=== PATIENT | female | born 1960 | race Caucasian/White ===

== ENCOUNTER 2016-09-24 09:05 | Inpatient (IN) | payer OTHER ==
[~2016-09-24] VITALS: Ht 2834.6 cm; Wt 93.0 kg
[~2016-09-24 09:05] MED LIST: ADVAIR 250/501 DISK IH; ALBUTEROL2.5 MG/3 M IH; CIPROFLOXACIN500 M1 PO; CLONAZEPAM0.5 MG PO; COMBIVENT RESPIM4 GM IH; DUONEB 2.5-0.5 M3 ML AEROSOL; ELAVIL10 MG PO; ESCITALOPRAM OX20 MG PO; FLEXERIL10 MG PO; LEVAQUIN750 MG PO; LEVOTHYROXINE75 MCG PO; LEXAPRO PO; LIDODERM 5% P1 PATCH TD; LISINOPRIL10 MG PO; LORTAB 5-325 M1 EACH PO; MOTRIN600 MG PO; NAPROSYN-EC500 MG PO; NORCO 7.5/321 TABLET PO; OXYCODONE-APAP1 EACH PO; PERCOCET 5/31 TABLET PO; PREDNISONE20 MG PO; PRILOSEC20 MG PO; SYNTHROID PO; VALIUM5 MG PO; VENTOLIN HFA18 GM IH; VICOPROFEN1 TABLET PO; Valium PO; WELLBUTRIN XL300 MG PO; ZITHROMAX Z-PA250 MG PO; ZOFRAN ODT4 MG PO
[2016-09-24 09:59] LABS: EOSINOPHIL (%) 0.6 % (0-5); EOSINOPHIL COUNT 0.1 K/uL (0-0.3); HEMATOCRIT 36.2 % (36.0-46.0); IMMATURE GRANULOCYTE (%) 0.2 % (0.0-0.7); IMMATURE GRANULOCYTE COUNT 0.2 K/uL; LYMPHOCYTE COUNT 1.6 K/uL (1.0-2.8); MCH 30.5 PG (29.0-34.0); MCHC 33.4 G/DL (30.0-36.0); MCV 91.2 FL (83-99); MEAN PLAT.VOLUME 9.9 uM^3 (9.5-12.4); MONOCYTE (%) 10.2 % (3-12); MONOCYTE COUNT 0.8 K/uL (0-0.8); NEUTROPHIL (%) 69.8 % (45-76); NEUTROPHIL COUNT 5.7 K/uL (1.8-6.4); PLATELET COUNT 130 K/uL (156-360); RBC DIS.WIDTH-CV 13.5 % (11.8-14.6); RBC DIS.WIDTH-SD 43.9 % (39-53); RED BLOOD COUNT 3.97 M/uL (3.80-5.20); WHITE BLOOD COUNT 8.1 K/uL (4.1-10.2)
[2016-09-24 10:04] LABS: CHLORIDE 105 mEq/L (99-109); POTASSIUM 4.5 mEq/L (3.7-5.4); SODIUM 139 mEq/L (136-147)
[2016-09-24 10:06] LABS: D-DIMER ELISA 0.29 mg/L FEU (< 0.57); GLUCOSE 130 mg/dL (70-99); INTER. NORMALIZED RATIO 1.1; PROTHROMBIN TIME 10.8 (9.2-11.2); PTT 28.3 (25-32)
[2016-09-24 10:07] LABS: ANION GAP 10 MEQ/L (2-14)
[2016-09-24 10:10] LABS: GFR ESTIMATE (CALCULATED) > 59 mL/min/
[2016-09-24 10:11] LABS: UREA NITROGEN (BUN) 11 mg/dL (9-23)
[2016-09-24 10:13] LABS: TROP-I INTERPRETATION NEGATIVE; TROPONIN-I 0.02 ng/mL (0.0-0.30)
[2016-09-24] MEDS ORDERED: ALBUTEROL2.5 MG/3 M IH (11:35)
[2016-09-24] MEDS ORDERED: AMITRIPTYLINE H10 MG PO (11:36)
[2016-09-24] MEDS ORDERED: OMEPRAZOLE20 MG PO (11:36)
[2016-09-24] MEDS ORDERED: ESCITALOPRAM OX20 MG PO (11:37)
[2016-09-24] MEDS ORDERED: BUPROPION XL300 MG PO (11:37)
[2016-09-24] MEDS ORDERED: LEVOTHYROXINE75 MCG PO (11:37)
[2016-09-24] MEDS ORDERED: NICOTINE PATCH1 EAC2 TD (11:38)
[2016-09-24 13:25] LABS: TROP-I INTERPRETATION NEGATIVE; TROPONIN-I < 0.01 ng/mL (0.0-0.30)
[2016-09-24 14:15] VITALS: BP 118/74
[2016-09-24 19:11] LABS: TROP-I INTERPRETATION NEGATIVE; TROPONIN-I 0.02 ng/mL (0.0-0.30)
[2016-09-24 20:55] VITALS: BP 109/58
[2016-09-25 00:50] VITALS: BP 95/64
[2016-09-25 00:53] LABS: TROP-I INTERPRETATION NEGATIVE; TROPONIN-I < 0.01 ng/mL (0.0-0.30)
[2016-09-25 04:51] VITALS: BP 100/60
[2016-09-25 06:52] LABS: EOSINOPHIL (%) 1.8 % (0-5); EOSINOPHIL COUNT 0.1 K/uL (0-0.3); HEMATOCRIT 29.3 % (36.0-46.0); LYMPHOCYTE COUNT 0.9 K/uL (1.0-2.8); MCH 30.4 PG (29.0-34.0); MCHC 32.4 G/DL (30.0-36.0); MCV 93.9 FL (83-99); MONOCYTE (%) 10.4 % (3-12); MONOCYTE COUNT 0.4 K/uL (0-0.8); NEUTROPHIL (%) 62.3 % (45-76); NEUTROPHIL COUNT 2.1 K/uL (1.8-6.4); RBC DIS.WIDTH-CV 13.6 % (11.8-14.6); RBC DIS.WIDTH-SD 46.5 % (39-53)
[2016-09-25 06:56] LABS: RED BLOOD COUNT 3.12 M/uL (3.80-5.20); WHITE BLOOD COUNT 3.4 K/uL (4.1-10.2)
[2016-09-25 07:30] VITALS: BP 109/63
[2016-09-25 07:37] LABS: MEAN PLAT.VOLUME 9.8 uM^3 (9.5-12.4); PLAT.SUFFICIENCY DECREASED; USER ID TLN
[2016-09-25 07:39] LABS: PLATELET COUNT 87 K/uL (156-360)
[2016-09-25 08:17] LABS: INFLUENZA A VIRAL ANTIGEN NEGATIVE; INFLUENZA B VIRAL ANTIGEN NEGATIVE
[2016-09-25 09:01] LABS: ANION GAP 5 MEQ/L (2-14); CHLORIDE 109 MEQ/L (99-109); GFR ESTIMATE (CALCULATED) > 59 mL/min/; POTASSIUM 4.4 MEQ/L (3.7-5.4); SAMPLE HEMOLYSIS CHECK 0; SAMPLE ICTERIC CHECK 0; SAMPLE LIPEMIA CHECK 0; SODIUM 142 MEQ/L (136-147); UREA NITROGEN (BUN) 7 mg/dL (9-23)
[2016-09-25 09:03] LABS: GLUCOSE 83 mg/dL (70-99)
[2016-09-25 11:19] VITALS: BP 111/72
[2016-09-25 14:47] VITALS: BP 109/68
[2016-09-25 20:24] VITALS: BP 119/75
[2016-09-26] VITALS (7 sets, daily range): BP systolic 109–148; BP diastolic 59–87
[2016-09-26 06:53] LABS: ALKALINE PHOSPHATASE 83 IU/L (3-129); ANION GAP 8 MEQ/L (2-14); CHLORIDE 108 MEQ/L (99-109); GFR ESTIMATE (CALCULATED) > 59 mL/min/; POTASSIUM 4.4 MEQ/L (3.7-5.4); SAMPLE HEMOLYSIS CHECK 0; SAMPLE ICTERIC CHECK 0; SAMPLE LIPEMIA CHECK 0; SODIUM 141 MEQ/L (136-147); TOTAL BILIRUBIN 0.3 MG/DL (0.0-1.0); UREA NITROGEN (BUN) 9 mg/dL (9-23)
[2016-09-26 07:00] LABS: EOSINOPHIL (%) 0 % (0-5); GLUCOSE 137 mg/dL (70-99); HEMATOCRIT 30.5 % (36.0-46.0); IMMATURE GRANULOCYTE (%) 0.3 % (0.0-0.7); LYMPHOCYTE COUNT 0.5 K/uL (1.0-2.8); MCH 29.6 PG (29.0-34.0); MCHC 32.5 G/DL (30.0-36.0); MEAN PLAT.VOLUME 9.9 uM^3 (9.5-12.4); MONOCYTE (%) 1.7 % (3-12); MONOCYTE COUNT 0.1 K/uL (0-0.8); NEUTROPHIL (%) 91.1 % (45-76); RBC DIS.WIDTH-CV 13.2 % (11.8-14.6); RED BLOOD COUNT 3.35 M/uL (3.80-5.20)
[2016-09-26 07:01] LABS: PLATELET COUNT 129 K/uL (156-360); WHITE BLOOD COUNT 7.7 K/uL (4.1-10.2)
[2016-09-26 09:50] LABS: ADD MIUA? NO; BILIRUBIN NEGATIVE; BLOOD NEGATIVE; COLOR YELLOW ((YELLOW)); GLUCOSE (STRIP) NEGATIVE; KETONES NEGATIVE; LEUKOCYTES NEGATIVE; NITRITE NEGATIVE; PH, URINE 6.5 (5-8); PROTEIN (STRIP) NEGATIVE; SPECIFIC GRAVITY 1.013 (1.000-1.030); UROBILINOGEN 0.2 MG/DL (0.2-1.0)
[2016-09-27] VITALS (7 sets, daily range): BP systolic 130–147; BP diastolic 60–93
[2016-09-28 04:11] VITALS: BP 128/87
[2016-09-28 07:56] VITALS: BP 131/86
[2016-09-28 12:09] VITALS: BP 160/85
[2016-09-28 15:36] VITALS: BP 141/89
[2016-09-28 19:10] VITALS: BP 134/93
[2016-09-28 23:30] VITALS: BP 121/71
[2016-09-29 04:10] VITALS: BP 137/98
[2016-09-29] MEDS ORDERED: LEVOTHYROXINE88 MCG PO (07:03)
[2016-09-29] MEDS ORDERED: CEFTIN500 MG PO (07:03)
[2016-09-29] MEDS ORDERED: SPIRIVA RESPIMAT4 GM IH (07:03)
[2016-09-29] MEDS ORDERED: ENDOCET 5-3251 EACH PO (07:03)
[2016-09-29 07:45] VITALS: BP 136/93
== END 2016-09-29 09:57 | disposition home or self-care (01) | DRG 191 ==
LOC: EME 09:05 → EDOF 11:09 → 4EAST 11:09
PROVIDERS: Emergency Medicine; Internal Medicine Cardiovascular Disease; Nurse Practitioner Adult Health; Physician Assistant
DX: J44.1 Chronic obstructive pulmonary disease with (acute) exacerbation (principal); I47.1 Supraventricular tachycardia; F33.9 Major depressive disorder, recurrent, unspecified; J44.0 Chronic obstructive pulmonary disease with (acute) lower respiratory infection; J20.1 Acute bronchitis due to Hemophilus influenzae; B96.3 Hemophilus influenzae [H. influenzae] as the cause of diseases classified elsewhere; R94.31 Abnormal electrocardiogram [ECG] [EKG]; E03.9 Hypothyroidism, unspecified; F41.9 Anxiety disorder, unspecified; R09.1 Pleurisy; N95.0 Postmenopausal bleeding; I10 Essential (primary) hypertension; F12.90 Cannabis use, unspecified, uncomplicated; G40.909 Epilepsy, unspecified, not intractable, without status epilepticus; K21.9 Gastro-esophageal reflux disease without esophagitis; G89.29 Other chronic pain; Z91.410 Personal history of adult physical and sexual abuse; Z87.11 Personal history of peptic ulcer disease; Z87.891 Personal history of nicotine dependence; Z82.49 Family history of ischemic heart disease and other diseases of the circulatory system; Z83.3 Family history of diabetes mellitus
CPT/HCPCS: 71010; 71275; 80048; 80053; 81003; 84439; 84443; 84484; 85025; 85379; 85610; 85730; 87070; 87077; 87086; 87185; 87205; 87502; 93005; 93306; 94010; 94640; 94640 76; 94799; 99202; 99281; 99285; J0153; J0456; J0696; J1170; J1644; J2270; J2930; J7030; J7050; J7512

== ENCOUNTER 2017-02-03 04:29 | Inpatient (IN) | payer OTHER ==
[~2017-02-03] VITALS: Ht 167.6 cm; Wt 99.2 kg
[~2017-02-03 04:29] MED LIST changes: +AMITRIPTYLINE H10 MG PO; +BUPROPION XL300 MG PO; +CEFTIN500 MG PO; +ENDOCET 5-3251 EACH PO; +LEVOTHYROXINE88 MCG PO; +NICOTINE PATCH1 EAC2 TD; +OMEPRAZOLE20 MG PO; +SPIRIVA RESPIMAT4 GM IH
[2017-02-03 05:29] LABS: CHLORIDE 105 mEq/L (99-109); SODIUM 141 mEq/L (136-147)
[2017-02-03 05:31] LABS: GLUCOSE 119 mg/dL (70-99)
[2017-02-03 05:32] LABS: ANION GAP 11 MEQ/L (2-14)
[2017-02-03 05:35] LABS: GFR ESTIMATE (CALCULATED) > 59 mL/min/; UREA NITROGEN (BUN) 12 mg/dL (9-23)
[2017-02-03 05:39] LABS: TROP-I INTERPRETATION NEGATIVE; TROPONIN-I 0.03 ng/mL (0.0-0.30)
[2017-02-03 05:45] LABS: QUANTITATIVE HCG < 4.0 MIU/ML
[2017-02-03 05:47] LABS: HEMATOCRIT 38.2 % (36.0-46.0); MCH 30.4 PG (29.0-34.0); MCHC 33.2 G/DL (30.0-36.0); MCV 91.4 FL (83-99); MEAN PLAT.VOLUME 10.3 uM^3 (9.5-12.4); PLATELET COUNT 181 K/uL (156-360); RBC DIS.WIDTH-CV 12.8 % (11.8-14.6); RBC DIS.WIDTH-SD 42.7 % (39-53); RED BLOOD COUNT 4.18 M/uL (3.80-5.20); WHITE BLOOD COUNT 9.8 K/uL (4.1-10.2)
[2017-02-03 06:25] LABS: BASE EXCESS 2.4 mEq/L (-3 to +3); BICARBONATE 28.3 mEq/L (22-26); CARBOXY HGB 3.7 % (0-5); COMMENTS - BLOOD GASES A+C+; METHEMOGLOBIN 1.1 % (0-1.5); O2 FLOW 4 L/MIN; PCO2 49 mm Hg (35-45); PO2 98 mm Hg (80-100); SITE RR; TOTAL RESP RATE 22 resp/min; pH 7.37 (7.35-7.45)
[2017-02-03] MEDS ORDERED: LEVO-T100 MCG PO (09:10)
[2017-02-03] MEDS ORDERED: FLUOXETINE HCL20 MG PO (09:13)
[2017-02-03 12:51] LABS: TROP-I INTERPRETATION NEGATIVE; TROPONIN-I 0.02 ng/mL (0.0-0.30)
[2017-02-03 13:52] VITALS: BP 118/73
[2017-02-03 15:59] VITALS: BP 117/78
[2017-02-03 19:25] VITALS: BP 110/69
[2017-02-04] VITALS (7 sets, daily range): BP systolic 108–157; BP diastolic 67–92
[2017-02-04 05:30] LABS: HEMATOCRIT 29.7 % (36.0-46.0); MCH 30.7 PG (29.0-34.0); MCV 93.1 FL (83-99); MEAN PLAT.VOLUME 10.1 uM^3 (9.5-12.4); PLATELET COUNT 127 K/uL (156-360); RBC DIS.WIDTH-CV 12.6 % (11.8-14.6); RBC DIS.WIDTH-SD 43.2 % (39-53)
[2017-02-04 05:31] LABS: RED BLOOD COUNT 3.19 M/uL (3.80-5.20); WHITE BLOOD COUNT 6.4 K/uL (4.1-10.2)
[2017-02-04 05:45] LABS: ANION GAP 6 MEQ/L (2-14); CHLORIDE 108 MEQ/L (99-109); GFR ESTIMATE (CALCULATED) > 59 mL/min/; GLUCOSE 162 mg/dL (70-99); POTASSIUM 4.5 MEQ/L (3.7-5.4); SAMPLE HEMOLYSIS CHECK 0; SAMPLE ICTERIC CHECK 0; SAMPLE LIPEMIA CHECK 0; SODIUM 141 MEQ/L (136-147); UREA NITROGEN (BUN) 11 mg/dL (9-23)
[2017-02-04 12:49] LABS: TROP-I INTERPRETATION NEGATIVE; TROPONIN-I < 0.01 ng/mL (0.0-0.30)
[2017-02-05 04:54] VITALS: BP 143/97
[2017-02-05 07:04] VITALS: BP 143/81
[2017-02-05 11:19] VITALS: BP 141/81
[2017-02-05 15:16] VITALS: BP 142/94
[2017-02-05 22:33] VITALS: BP 133/88
[2017-02-05 23:27] VITALS: BP 148/88
[2017-02-06 04:18] VITALS: BP 134/88
[2017-02-06 04:43] LABS: EOSINOPHIL (%) 0 % (0-5); HEMATOCRIT 31.1 % (36.0-46.0); IMMATURE GRANULOCYTE (%) 2.6 % (0.0-0.7); IMMATURE GRANULOCYTE COUNT 0.2 K/uL; INSTRUMENT ABS NEUTROPHIL CT 5.3 K/uL; LYMPHOCYTE COUNT 0.5 K/uL (1.0-2.8); MCH 29.7 PG (29.0-34.0); MCHC 32.2 G/DL (30.0-36.0); MCV 92.3 FL (83-99); MEAN PLAT.VOLUME 9.5 uM^3 (9.5-12.4); MONOCYTE (%) 4.5 % (3-12); MONOCYTE COUNT 0.3 K/uL (0-0.8); NEUTROPHIL (%) 84.6 % (45-76); NEUTROPHIL COUNT 5.3 K/uL (1.8-6.4); PLATELET COUNT 164 K/uL (156-360); RBC DIS.WIDTH-CV 12.6 % (11.8-14.6); RBC DIS.WIDTH-SD 42.7 % (39-53); RED BLOOD COUNT 3.37 M/uL (3.80-5.20); WHITE BLOOD COUNT 6.3 K/uL (4.1-10.2)
[2017-02-06 05:02] LABS: CHLORIDE 109 mEq/L (99-109); POTASSIUM 4.8 mEq/L (3.7-5.4); SODIUM 143 mEq/L (136-147)
[2017-02-06 05:04] LABS: GLUCOSE 124 mg/dL (70-99)
[2017-02-06 05:06] LABS: ANION GAP 4 MEQ/L (2-14); TOTAL BILIRUBIN 0.2 mg/dL (0.0-1.0)
[2017-02-06 05:08] LABS: ALKALINE PHOSPHATASE 106 IU/L (3-129); GFR ESTIMATE (CALCULATED) > 59 mL/min/
[2017-02-06 05:09] LABS: UREA NITROGEN (BUN) 15 mg/dL (9-23)
[2017-02-06 07:43] VITALS: BP 128/85
[2017-02-06 12:25] VITALS: BP 175/89
[2017-02-06 16:31] VITALS: BP 99/62
[2017-02-06 20:00] VITALS: BP 158/100
[2017-02-06 23:55] VITALS: BP 134/89
[2017-02-07 04:00] VITALS: BP 168/98
[2017-02-07 07:34] VITALS: BP 142/94
[2017-02-07 11:30] VITALS: BP 165/103
[2017-02-07 15:31] VITALS: BP 134/94
[2017-02-07] MEDS ORDERED: LEVAQUIN500 MG PO (15:59)
[2017-02-07] MEDS ORDERED: CLOPIDOGREL75 MG PO (16:03)
[2017-02-07] MEDS ORDERED: PREDNISONE5 MG PO (16:03)
== END 2017-02-07 16:35 | disposition home or self-care (01) | DRG 309 ==
LOC: EME 04:29 → EDOF 10:49 → 4EAST 11:10 → EDOF 11:10 → 4EAST 13:32
PROVIDERS: Emergency Medicine; Hospitalist; Nurse Practitioner Adult Health
DX: I47.1 Supraventricular tachycardia (principal); J44.0 Chronic obstructive pulmonary disease with (acute) lower respiratory infection; J20.9 Acute bronchitis, unspecified; J44.1 Chronic obstructive pulmonary disease with (acute) exacerbation; I10 Essential (primary) hypertension; R07.89 Other chest pain; G89.29 Other chronic pain; M54.5 Low back pain; K21.9 Gastro-esophageal reflux disease without esophagitis; K59.00 Constipation, unspecified; E03.9 Hypothyroidism, unspecified; F32.9 Major depressive disorder, single episode, unspecified; F41.9 Anxiety disorder, unspecified; F17.210 Nicotine dependence, cigarettes, uncomplicated
CPT/HCPCS: 36600; 71010; 71275; 80048; 80053; 82803; 83880; 84439; 84443; 84484; 84702; 85025; 85027; 86900; 86901; 87040; 93005; 94640; 94640 76; 94760; 94799; 99202; 99281; 99285; J0456; J0696; J1644; J1956; J2270; J2405; J2920; J7030; J7050

== ENCOUNTER 2017-02-24 16:18 | Observation (INO) | payer OTHER ==
[~2017-02-24] VITALS: Ht 167.6 cm; Wt 95.1 kg
[~2017-02-24 16:18] MED LIST changes: +CLOPIDOGREL75 MG PO; +FLUOXETINE HCL20 MG PO; +LEVAQUIN500 MG PO; +LEVO-T100 MCG PO; +PREDNISONE5 MG PO
[2017-02-24 17:36] LABS: HEMATOCRIT 36.9 % (36.0-46.0); MCH 29.7 PG (29.0-34.0); MCHC 33.3 G/DL (30.0-36.0); MCV 89.1 FL (83-99); MEAN PLAT.VOLUME 9.5 uM^3 (9.5-12.4); PLATELET COUNT 157 K/uL (156-360); RBC DIS.WIDTH-CV 13.1 % (11.8-14.6); RBC DIS.WIDTH-SD 42.4 % (39-53); RED BLOOD COUNT 4.14 M/uL (3.80-5.20); WHITE BLOOD COUNT 4.4 K/uL (4.1-10.2)
[2017-02-24 17:43] LABS: CHLORIDE 108 mEq/L (99-109); POTASSIUM 4.2 mEq/L (3.7-5.4); SODIUM 140 mEq/L (136-147)
[2017-02-24 17:45] LABS: GLUCOSE 86 mg/dL (70-99)
[2017-02-24 17:46] LABS: ANION GAP 9 MEQ/L (2-14)
[2017-02-24 17:47] LABS: D-DIMER ELISA 0.31 mg/L FEU (< 0.57)
[2017-02-24 17:49] LABS: GFR ESTIMATE (CALCULATED) > 59 mL/min/
[2017-02-24 17:50] LABS: UREA NITROGEN (BUN) 12 mg/dL (9-23)
[2017-02-24 17:55] LABS: TROP-I INTERPRETATION NEGATIVE; TROPONIN-I < 0.01 ng/mL (0.0-0.30)
[2017-02-24] MEDS ORDERED: PLAVIX75 MG PO (20:18)
[2017-02-24] MEDS ORDERED: DILTIAZEM 24HR120 MG PO (20:20)
[2017-02-24] MEDS ORDERED: ADVAIR 250/501 DISK IH (20:20)
[2017-02-24 22:07] LABS: TOTAL BILIRUBIN 0.6 mg/dL (0.0-1.0)
[2017-02-24 22:08] LABS: ALKALINE PHOSPHATASE 119 IU/L (3-129)
[2017-02-24 22:10] LABS: DIRECT BILIRUBIN 0.2 mg/dL (0.0-0.3)
[2017-02-24 22:11] LABS: LIPASE 44 U/L (1.0-51.0)
[2017-02-24 23:44] VITALS: BP 121/80
[2017-02-24 23:45] LABS: TROP-I INTERPRETATION NEGATIVE; TROPONIN-I < 0.01 ng/mL (0.0-0.30)
[2017-02-25 05:32] LABS: HEMATOCRIT 34.2 % (36.0-46.0); MCH 30.7 PG (29.0-34.0); MCHC 33.3 G/DL (30.0-36.0); MCV 92.2 FL (83-99); MEAN PLAT.VOLUME 9.5 uM^3 (9.5-12.4); PLATELET COUNT 123 K/uL (156-360); RBC DIS.WIDTH-CV 13.3 % (11.8-14.6); RBC DIS.WIDTH-SD 45.2 % (39-53); RED BLOOD COUNT 3.71 M/uL (3.80-5.20); WHITE BLOOD COUNT 3.7 K/uL (4.1-10.2)
[2017-02-25 05:37] LABS: TROP-I INTERPRETATION NEGATIVE; TROPONIN-I < 0.01 ng/mL (0.0-0.30)
[2017-02-25 05:53] LABS: ANION GAP 3 MEQ/L (2-14); CHLORIDE 110 MEQ/L (99-109); GFR ESTIMATE (CALCULATED) > 59 mL/min/; GLUCOSE 91 mg/dL (70-99); POTASSIUM 4.5 MEQ/L (3.7-5.4); SAMPLE HEMOLYSIS CHECK 0; SAMPLE ICTERIC CHECK 0; SAMPLE LIPEMIA CHECK 0; SODIUM 141 MEQ/L (136-147); UREA NITROGEN (BUN) 9 mg/dL (9-23)
[2017-02-25 08:01] VITALS: BP 120/81
[2017-02-25 08:56] VITALS: BP 121/82
== END 2017-02-25 11:44 | disposition home or self-care (01) ==
LOC: EME 16:18 → EDOF 21:21 → 5WEST 21:21 → EDOF 21:21 → 5WEST 22:55
PROVIDERS: Emergency Medicine; Hospitalist
DX: R07.9 Chest pain, unspecified (principal); R94.31 Abnormal electrocardiogram [ECG] [EKG]; I10 Essential (primary) hypertension; J44.1 Chronic obstructive pulmonary disease with (acute) exacerbation; E03.9 Hypothyroidism, unspecified; G43.909 Migraine, unspecified, not intractable, without status migrainosus; F41.9 Anxiety disorder, unspecified; F32.9 Major depressive disorder, single episode, unspecified; F17.210 Nicotine dependence, cigarettes, uncomplicated; E66.9 Obesity, unspecified
CPT/HCPCS: 71010; 80048; 80076; 81003; 83690; 84484; 85027; 85379; 93005; 94640; 94640 76; 99202; 99281; 99285; G0378; J2270; J7030

== ENCOUNTER 2017-03-30 10:22 | Emergency (ER) | payer OTHER ==
[~2017-03-30] VITALS: Ht 167.6 cm; Wt 97.1 kg
[~2017-03-30 10:22] MED LIST changes: +DILTIAZEM 24HR120 MG PO; +PLAVIX75 MG PO
[2017-03-30 11:47] LABS: HEMATOCRIT 36.2 % (36.0-46.0); MCH 29.6 PG (29.0-34.0); MCV 92.3 FL (83-99); MEAN PLAT.VOLUME 9.7 uM^3 (9.5-12.4); PLATELET COUNT 140 K/uL (156-360); RBC DIS.WIDTH-CV 13.3 % (11.8-14.6); RBC DIS.WIDTH-SD 45.3 % (39-53); RED BLOOD COUNT 3.92 M/uL (3.80-5.20); WHITE BLOOD COUNT 6.3 K/uL (4.1-10.2)
[2017-03-30 12:19] LABS: CHLORIDE 102 mEq/L (99-109); POTASSIUM 4.8 mEq/L (3.7-5.4); SODIUM 139 mEq/L (136-147)
[2017-03-30 12:22] LABS: GLUCOSE 91 mg/dL (70-99)
[2017-03-30 12:23] LABS: ANION GAP 13 MEQ/L (2-14); TOTAL BILIRUBIN 1.1 mg/dL (0.0-1.0)
[2017-03-30 12:25] LABS: ALKALINE PHOSPHATASE 150 IU/L (3-129); GFR ESTIMATE (CALCULATED) > 59 mL/min/
[2017-03-30 12:26] LABS: UREA NITROGEN (BUN) 8 mg/dL (9-23)
[2017-03-30 14:20] LABS: ADD MIUA? YES; BILIRUBIN NEGATIVE; BLOOD NEGATIVE; COLOR YELLOW ((YELLOW)); GLUCOSE (STRIP) NEGATIVE; KETONES 20; LEUKOCYTES NEGATIVE; NITRITE NEGATIVE; PROTEIN (STRIP) 30; SPECIFIC GRAVITY 1.016 (1.000-1.030); UROBILINOGEN 0.2 MG/DL (0.2-1.0)
[2017-03-30 14:32] LABS: BACTERIA NONE SEEN /HPF; EPITHELIAL CELLS RARE /HPF; MUCUS TRACE /LPF; RED BLOOD CELLS 0-5 /HPF (0-5); UCUL ADDED? NO; WHITE BLOOD CELLS 0-5 /HPF (0-5)
[2017-03-30] MEDS ORDERED: PREDNISONE20 MG PO (16:17)
[2017-03-30] MEDS ORDERED: LEVAQUIN750 MG PO (16:17)
[2017-03-30] MEDS ORDERED: VENTOLIN HFA18 GM IH (16:17)
[2017-03-30] MEDS ORDERED: BENTYL20 MG PO (16:17)
[2017-03-30] MEDS ORDERED: ZOFRAN ODT4 MG PO (16:52)
[2017-03-30 16:56] VITALS: BP 130/88
== END 2017-03-30 16:56 | disposition home or self-care (01) ==
LOC: EME 10:22 → EXP 10:22
DX: R10.32 Left lower quadrant pain (principal); R91.1 Solitary pulmonary nodule; D69.6 Thrombocytopenia, unspecified; F17.200 Nicotine dependence, unspecified, uncomplicated; J44.9 Chronic obstructive pulmonary disease, unspecified; I10 Essential (primary) hypertension; E05.90 Thyrotoxicosis, unspecified without thyrotoxic crisis or storm; I48.91 Unspecified atrial fibrillation; Z79.01 Long term (current) use of anticoagulants; Z90.49 Acquired absence of other specified parts of digestive tract
CPT/HCPCS: 71020; 74177; 80053; 81003; 84702; 85027; 94640; 99281; 99284; J1885; J3010; J7040

== ENCOUNTER 2018-02-22 15:24 | Emergency (ER) | payer OTHER ==
[~2018-02-22] VITALS: Ht 167.6 cm; Wt 110.9 kg
[~2018-02-22 15:24] MED LIST changes: +BENTYL20 MG PO
[2018-02-22 16:07] LABS: HEMATOCRIT 34.3 % (36.0-46.0); HEMOGLOBIN 11.1 G/DL (11.9-15.5); MCH 31.4 PG (29.0-34.0); MCHC 32.4 G/DL (30.0-36.0); MCV 97.2 FL (83-99); PLATELET COUNT 161 K/uL (156-360); RBC DIS.WIDTH-CV 13.5 % (11.8-14.6); RBC DIS.WIDTH-SD 47.6 % (39-53); RED BLOOD COUNT 3.53 M/uL (3.80-5.20); WHITE BLOOD COUNT 5.2 K/uL (4.1-10.2)
[2018-02-22 16:16] LABS: CHLORIDE 106 mEq/L (99-109); SODIUM 144 mEq/L (136-147)
[2018-02-22 16:18] LABS: GLUCOSE 122 mg/dL (70-99)
[2018-02-22 16:22] LABS: CREATININE 0.9 mg/dL (0.6-1.3); GFR ESTIMATE (CALCULATED) > 59 mL/min/
[2018-02-22 16:23] LABS: UREA NITROGEN (BUN) 9 mg/dL (9-23)
[2018-02-22 17:21] LABS: TROP-I INTERPRETATION NEGATIVE; TROPONIN-I < 0.01 ng/mL (0.0-0.30)
[2018-02-22 18:58] VITALS: BP 124/83
== END 2018-02-22 19:07 | disposition home or self-care (01) ==
LOC: EME 15:24
DX: S80.02XA Contusion of left knee, initial encounter (principal); S50.02XA Contusion of left elbow, initial encounter; S90.02XA Contusion of left ankle, initial encounter; M79.605 Pain in left leg; M79.89 Other specified soft tissue disorders; W19.XXXA Unspecified fall, initial encounter; I10 Essential (primary) hypertension; E05.90 Thyrotoxicosis, unspecified without thyrotoxic crisis or storm; F32.9 Major depressive disorder, single episode, unspecified; F41.9 Anxiety disorder, unspecified; Z87.891 Personal history of nicotine dependence; Z90.49 Acquired absence of other specified parts of digestive tract; Z79.02 Long term (current) use of antithrombotics/antiplatelets; Z88.6 Allergy status to analgesic agent
CPT/HCPCS: 71046; 73080; 73564; 73610; 80048; 83880; 84484; 85027; 93005; 93971; 99281; 99283

== ENCOUNTER 2018-03-17 07:53 | Emergency (ER) | payer OTHER ==
[~2018-03-17] VITALS: Ht 167.6 cm; Wt 108.0 kg
[2018-03-17 08:53] LABS: BASOPHIL (%) 0.5 % (0-1); EOSINOPHIL COUNT 0.1 K/uL (0-0.3); HEMATOCRIT 37.4 % (36.0-46.0); HEMOGLOBIN 12.5 G/DL (11.9-15.5); IMMATURE GRANULOCYTE (%) 0.7 % (0.0-0.7); LYMPHOCYTE (%) 15.1 % (15-42); LYMPHOCYTE COUNT 0.8 K/uL (1.0-2.8); MCHC 33.4 G/DL (30.0-36.0); MONOCYTE (%) 7.3 % (3-12); MONOCYTE COUNT 0.4 K/uL (0-0.8); NEUTROPHIL (%) 74.4 % (45-76); NEUTROPHIL COUNT 4.1 K/uL (1.8-6.4); PLATELET COUNT 185 K/uL (156-360); RBC DIS.WIDTH-CV 12.8 % (11.8-14.6); RBC DIS.WIDTH-SD 43.2 % (39-53); RED BLOOD COUNT 4.03 M/uL (3.80-5.20); WHITE BLOOD COUNT 5.5 K/uL (4.1-10.2)
[2018-03-17 08:54] LABS: MCV 92.8 FL (83-99)
[2018-03-17 08:57] LABS: CHLORIDE 102 mEq/L (99-109); POTASSIUM 4.2 mEq/L (3.7-5.4); SODIUM 141 mEq/L (136-147)
[2018-03-17 08:59] LABS: GLUCOSE 97 mg/dL (70-99)
[2018-03-17 09:03] LABS: GFR ESTIMATE (CALCULATED) > 59 mL/min/
[2018-03-17 09:04] LABS: UREA NITROGEN (BUN) 9 mg/dL (9-23)
[2018-03-17] MEDS ORDERED: TYLENOL WITH C1 EACH PO (09:57)
[2018-03-17 10:46] VITALS: BP 132/98
== END 2018-03-17 11:08 | disposition home or self-care (01) ==
LOC: EME 07:53
PROVIDERS: Emergency Medicine
DX: M54.5 Low back pain (principal); T14.8XXA Other injury of unspecified body region, initial encounter; S09.90XA Unspecified injury of head, initial encounter; W19.XXXA Unspecified fall, initial encounter; J44.9 Chronic obstructive pulmonary disease, unspecified; I10 Essential (primary) hypertension; R29.6 Repeated falls; E05.90 Thyrotoxicosis, unspecified without thyrotoxic crisis or storm; F32.9 Major depressive disorder, single episode, unspecified; F41.9 Anxiety disorder, unspecified; Z87.891 Personal history of nicotine dependence; Z90.49 Acquired absence of other specified parts of digestive tract; Z79.02 Long term (current) use of antithrombotics/antiplatelets; Z88.6 Allergy status to analgesic agent
CPT/HCPCS: 70450; 72070; 72100; 80048; 85025